=== PATIENT | male | born 1945 | race Caucasian/White ===

== ENCOUNTER 2017-03-03 09:28 | Observation (INO) | payer MEDICARE ==
--- NOTE | 2017-02-25 23:22 | HP ---
CC: Dr. Dumont * HISTORY AND PHYSICAL: DATE OF PLANNED ADMISSION AND SURGERY: 03/03/17 HISTORY OF PRESENT ILLNESS: Mr. Chatterjee is a 71-year-old white male who is admitted with bladder outlet obstruction, prostate enlargement, recurrent urinary tract infections, and partial urinary retention for transurethral resection of the prostate. Mr. Chatterjee was referred to our office by Dr. Dumont 2 years ago because of bilateral scrotal enlargement, acute epididymitis, urinary tract infections, bladder outlet obstruction, and partial urinary retention. His urinary tract infection was treated and he was placed on combination of tamsulosin and finasteride with improvement of his voiding. Because of symptomatic hydroceles, he underwent bilateral hydrocelectomies in April 2015. 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 He required drainage of residual abscess in the left scrotum about 3 weeks later. The patient did well from his scrotal pathology. He, however, has continued to have symptomatic obstructive voiding symptoms with nocturia 2 to 3 times, day frequency, slow stream, hesitancy, and feeling of incomplete bladder emptying. He also continued to have recurrent episodes of urinary tract infections and more recently grew merlin in his urine. He was worked up for the recurrent infections and had a cystoscopy, which showed a fairly large and obstructing prostate. The bladder mucosa was markedly hyperemic and there were diffuse heavy trabeculations. He had good sensation of fullness in his bladder when the cystoscopy was performed. At the time of his recent cystoscopy, about a week prior to this admission, he was noted to be in partial urinary retention and had about 300 cc in his bladder. He was kept on catheter drainage. Because of the above history, the recurrent episodes of infections, the partial urinary retention, the above operation was advised and accepted. PAST MEDICAL HISTORY AND SYSTEM REVIEW: He is a diabetic, who has not been well controlled probably because of the recurrent urinary tract infections. He is maintained on Glucotrol 5 mg twice a day, and on metformin 1 g twice a day. He has hyperlipidemia, on Lipitor 20 mg daily. He is on Ultram, oxycodone, and Motrin for his chronic back pain and arthritis. ALLERGIES: He denies any allergies to medications. SOCIAL HISTORY: He is a nonsmoker. REVIEW OF SYSTEMS: He denies any cardiac or pulmonary symptoms. PHYSICAL EXAMINATION GENERAL: Pleasant white male, who looks older than his age and is morbidly obese. VITAL SIGNS: Blood pressure 130/70, pulse of 90. LUNGS: Clear. HEART: Regular and rhythmic. No murmurs. ABDOMEN: Soft, obese. He has a large umbilical hernia. EXTERNAL GENITALIA: There is surgical absence of the left testis. The right testis feels normal. No inguinal hernias. RECTAL: Shows a large but nonsuspicious prostate. IMPRESSION: Bladder outlet obstruction, prostate enlargement, partial urinary retention, recurrent episodes of urinary tract infection not responding to medical treatment in a diabetic. PLAN: For transurethral resection of the prostate to improve his bladder emptying and help decrease the frequency of his urinary tract infections. The prostate is fairly large on both the rectal exam and on cystoscopy. Ideally , he will have better surgical result if an open simple prostatectomy is performed. The patient is, however very obese, has a large umbilical hernia, and he might have additional complications from an open prostatectomy. The option which I suggested and the patient agrees to, is to perform a transurethral resection of the prostate. It is possible that the resection cannot be complete and he might require a staging of his TURP to give him a good result with adequate voiding. I discussed the operation in detail. Some of the potential complications including infections, hematuria, postoperative urinary retention, small incidence of urinary incontinence. All his questions were answered. [id number]/[facility] #: [id number] [facility]
[~2017-03-03 09:28] MED LIST: Buffered Lidocaine 0.9% SYRIN* 5 ML/SYR SYRINGE INTRADERM ONE; Famotidine IV* 10 MG/ML 2 ML (20 mg) IV ONE; Metoclopramide TAB* 10 MG PO ONE
[2017-03-03] MEDS ORDERED: cefTRIAXone(*) 2 GM ADDV.VIAL IVPB ONE (09:42)
[2017-03-03] MEDS ORDERED: Metoclopramide TAB* 10 MG ONE (09:42)
[2017-03-03] MEDS ORDERED: Famotidine IV* 10 MG/ML 2 ML (20 mg) ONE (09:42)
[2017-03-03] MEDS ORDERED: Buffered Lidocaine 0.9% SYRIN* 5 ML/SYR SYRINGE ONE (09:42)
[2017-03-03] MEDS ORDERED: Insulin REGULAR(*) 1 UNITS UNIT ONE (10:26)
[2017-03-03] MEDS ORDERED: Levalbuterol 1.25MG/0.5ML NEB ONE (11:14)
[2017-03-03] MEDS ORDERED: fentaNYL* 50 MCG/ML 2 ML VIAL (100 MCG VIAL) ONE (12:15)
[2017-03-03] MEDS ORDERED: Ondansetron INJ* 2 MG/ML VIAL ONE (12:15)
[2017-03-03] MEDS ORDERED: Bupivacaine 0.5% SDV PF* 10-30ML VIAL ONE (12:15)
[2017-03-03] MEDS ORDERED: Propofol* 10 MG/ML 20 ML BTL IV PUSH ONE ×2 (12:15→14:25)
[2017-03-03] MEDS ORDERED: Lidocaine 2% PF * 5 ML VIAL ONE (12:15)
[2017-03-03] MEDS ORDERED: KETAMINE HCL* 50 MG/ML 10 ML VIAL ONE (12:16)
[2017-03-03] MEDS ORDERED: Midazolam* 1 MG/ML 10 ML VIAL (10 MG) ONE (12:16)
[2017-03-03] MEDS ORDERED: Ondansetron INJ* 2 MG/ML VIAL IV PRN (13:54)
[2017-03-03] MEDS ORDERED: fentaNYL* 50 MCG/ML 2 ML VIAL (100 MCG VIAL) IV PRN (13:54)
[2017-03-03] MEDS ORDERED: Lidocaine 2% JELLY* 6 ML JELLY TOPICAL PRN (18:18)
[2017-03-03] MEDS ORDERED: Dextrose 50% Syringe 50 ML* 25 GM/50 ML SYRINGE IV PUSH PRN (18:23)
[2017-03-03] MEDS: Oxybutynin TAB* 5 MG PO PRN (18:34)
[2017-03-03] MEDS: oxyCODONE/Acetamin 5/325 MG* TAB PO PRN (19:32)
[2017-03-03] MEDS: metFORMIN* 1,000 MG TAB PO SCH (19:32)
[2017-03-03] MEDS: Lisinopril TAB* 10 MG PO SCH (19:32)
[2017-03-03] MEDS ORDERED: Phenazopyridine TAB* 100 MG PO PRN (20:38)
[2017-03-03] MEDS: Insulin LISPRO* 1 UNITS UNIT SUBCUT SCH (21:36)
[2017-03-04] MEDS: oxyCODONE/Acetamin 5/325 MG* TAB PO PRN (01:08)
[2017-03-04] MEDS: Oxybutynin TAB* 5 MG PO PRN ×2 (02:34→09:03)
[2017-03-04] MEDS ORDERED: glipiZIDE TAB* 5 MG PO SCH (08:00)
[2017-03-04] MEDS ORDERED: cefTRIAXone VIAL(*) 1,000 MG in D5W 50 ML BAG* 50 ML IVPB ONE (08:00)
[2017-03-04 08:56] VITALS: BP 121/71
--- NOTE | 2017-03-04 08:56 | DS ---
CC: Dr. Dumont* DISCHARGE SUMMARY: DATE OF ADMISSION: 03/03/17 DATE OF DISCHARGE: 03/04/17 OPERATION: Transurethral resection of the prostate. FINAL DIAGNOSES: 1. Benign prostatic hyperplasia. 2. Partial urinary retention. 3. Diabetes mellitus. 4. Hypertension. 5. Arthritis. HISTORY: Mr. Chatterjee is a 71-year-old male with long history of a bladder outlet obstruction who has been maintained on tamsulosin and finasteride. Recently, his voiding symptoms have gotten worse and had recurrent urinary tract infections that kept recurring in spite of antibiotic treatment. He also was growing yeast in his urine. Workup with cystoscopy and bladder ultrasound showed an elevated residual urine of about 300 mL. The cystoscopy showed a very large and obstructing prostate and there was diffuse cystitis changes in the bladder. Because of the above history and findings a prostatectomy was advised and accepted. The patient has a very large prostate at cystoscopy, which was felt to be possibly too large to perform a TURP. The patient however will be at higher risk for open prostatectomy and he was warned about the possibility of the need to have a staged TURP if full resection cannot be performed in one setting, and if he continues to have obstructive symptoms. Past history is relevant for bilateral hydrocelectomies and for a left orchiectomy because of scrotal abscess. PAST MEDICAL HISTORY AND SYSTEM REVIEW: He is diabetic maintained on Glucophage 1 g twice a day and on Glucotrol 5 mg twice a day. He is on Invokana 100 mg daily. He has hypertension, on Prinivil 10 mg daily. He has been on aspirin 81 mg daily and it was discontinued preoperatively. ALLERGIES: The patient has no allergies to medications. LABORATORY DATA: Preoperative lab work was within normal. His preoperative urine culture grew merlin and the patient was treated with Diflucan preoperatively. COURSE IN HOSPITAL: The patient was admitted the morning of his surgery. He underwent an uncomplicated transurethral resection of the prostate under spinal anesthesia. The prostate was very large. However, at the end of the resection , it was felt that he should be able to void with a good urinary stream and he might not need a repeat TURP. The patient is being discharged home on all his preoperative medications with the exception of the tamsulosin. He also will be started on VESIcare 10 mg daily to help with his bladder spasms. I will see him in my office in 5 days for a catheter removal and a trial of voiding. Pathology showed the resected tissue measured 50 cc, BPH, no malignancy. [id number]/[facility] #: [id number] [facility]ENTER[facility]
[2017-03-04] MEDS ORDERED: Canagliflozin (NF) 100 MG TAB PO SCH (09:00)
[2017-03-04] MEDS ORDERED: Cetirizine* 10 MG TAB PO SCH (09:00)
[2017-03-04] MEDS ORDERED: Finasteride TAB* 5 MG PO SCH (09:00)
[2017-03-04] MEDS: metFORMIN* 1,000 MG TAB PO SCH (09:02)
[2017-03-04] MEDS: Lisinopril TAB* 10 MG PO SCH (09:02)
[2017-03-04] MEDS: Insulin LISPRO* 1 UNITS UNIT SUBCUT SCH (09:28)
--- NOTE | 2017-03-17 07:38 | OP ---
DATE OF OPERATION: 03/03/17 - ROOM #331 DATE OF : 41 SURGEON: Gabriel Parker MD. ANESTHESIOLOGIST: Dr. Sander Church. ANESTHESIA: Spinal. PRE-OP DIAGNOSES: 1. Partial urinary retention. 2. Benign prostatic hyperplasia. 3. Recurrent urinary tract infections. POST-OP DIAGNOSES: 1. Partial urinary retention. 2. Benign prostatic hyperplasia. 3. Recurrent urinary tract infections. OPERATIVE PROCEDURE: 1. Cystoscopy. 2. Transurethral resection of the prostate. INDICATION FOR PROCEDURE: Mr. Chatterjee is a 71-year-old white male who had long history of bladder outlet obstruction, large postvoid residual, and recurrent episodes of urinary tract infections. He has been maintained on tamsulosin and finasteride with only partial improvement in his symptoms. He continued to have an elevated postvoid residual of about 300 to 400 cc and had recurrent episodes of urinary tract infections and lately has been growing merlin in his urine. He had a cystoscopy in the office, which showed a very large and obstructing prostate, large postvoid residual and a heavily trabeculated bladder with multiple cellules, and changes of chronic cystitis. He had a Griffin catheter placed at that time draining about 350 cc. Because of the above history and findings and the failure of medical treatment, TURP was advised and accepted. PATHOLOGY: At cystoscopy, the penile and bulbar urethrae looked normal. The prostatic urethrae measured about 4.5 cm in length and there was marked degree of obstruction by a trilobar hyperplasia of the prostate. The median lobe was large and obstructing. Examination of the bladder showed diffuse and heavy trabeculations with multiple cellules. There was a significant degree of catheter reaction and hyperemia of the bladder wall. There were no gross suspicious or bladder lesions seen. No calculi or diverticula. The prostate adenoma was large and moderately vascular. DESCRIPTION OF PROCEDURE: After successful spinal anesthesia, the patient was placed in the lithotomy position and was prepped and draped for a cystoscopy. Cystoscopy was performed. The findings and the prostatic urethra and in the bladder were noted. The cystoscope was then introduced inside the bladder. Mannitol/sorbitol solution was used for irrigation and inflow and outflow were adjusted to avoid overdistention of the bladder. The median lobe was first resected to be at the level of the posterior bladder neck. The lateral lobes projecting inside the bladder neck were then resected circumferentially. The resectoscope was then positioned in the mid prostatic urethra and the posterior prostate tissue was resected between 5 o'clock and 8 o'clock. The resectoscope was then positioned at the level of the verumontanum and a similar resection was performed allowing the visualization of the bladder neck from the verumontanum. Resection of the left lateral lobe was then performed starting at 5 o'clock and proceeding anteriorly. Because of the length of the prostatic urethra, the resection of each lobe had to be done in a staged manner. The right lobe was then resected starting at 8 o'clock and proceeding anteriorly. The roof and the apical tissue were resected last. The bleeders were electrocoagulated and controlled. Resection was rather long and tedious secondary to the very large prostate adenoma. At the completion of the resection, the prostatic urethra was open. There were still residual adenomatous tissue bilaterally; however, it was nonobstructing. Inspection at the end of the procedure showed intact external sphincter and verumontanum. The capsule was intact without any perforation or any open sinuses. The ureteral orifices and the bladder wall were intact. After making sure all the prostate chips were evacuated and there was good hemostasis, the resectoscope was removed and a size 22 [place] Griffin catheter was passed inside the bladder and the balloon inflated with 40 mL of water. The catheter was placed under gentle traction and taped to be right thigh of the patient. Irrigation yielded clear returns. The patient tolerated the procedure well and left the operating room in good condition. The blood loss was estimated at less than 100 cc. The specimen was prostate chips. [id number]/[facility] #: [id number] [facility]
== END 2017-03-04 10:10 | disposition home or self-care (01) ==
LOC: OR 09:28 → SSU 17:30
PROVIDERS: ADMIT Urology; ATTEND Urology
DX: N40.1 Benign prostatic hyperplasia with lower urinary tract symptoms (principal); R33.8 Other retention of urine; E11.9 Type 2 diabetes mellitus without complications; I10 Essential (primary) hypertension; M19.90 Unspecified osteoarthritis, unspecified site; Z79.84 Long term (current) use of oral hypoglycemic drugs
CPT/HCPCS: 62323; 88305; 96374; 96375; A9270-GY; G0378; J0696; J2250; J2405; J2704; J3010